=== PATIENT | female | born 1940 | race Caucasian/White ===

== ENCOUNTER 2017-11-14 10:04 | Day surgery (SDC) | payer MEDICARE, BC ==
[~2017-11-14 10:04] MED LIST: Bupivacaine 0.5% 50 ML MDV ONE; Lidocaine 1% with EPINEPHrine 1:100,000 50 ML MDV ONE
[2017-11-14] MEDS ORDERED: Dextrose 5%-Lactated Ringers 1,000 ML IV SCH (10:45)
[2017-11-14] MEDS ORDERED: Midazolam 1 MG/ML 2 ML SDV ONE (11:15)
[2017-11-14] MEDS ORDERED: Propofol 200 MG/20 ML SDV ONE (11:15)
[2017-11-14] MEDS ORDERED: fentaNYL 100 MCG/2 ML SDV ONE (11:15)
[2017-11-14] MEDS ORDERED: Lidocaine 1% with EPINEPHrine 1:100,000 50 ML MDV INJECT ONE (12:14)
[2017-11-14] MEDS ORDERED: Bupivacaine 0.5% 50 ML MDV INJECT ONE (12:14)
[2017-11-14] MEDS ORDERED: Acetaminophen/HYDROcodone 325-5 MG Tab PO PRN (13:06)
--- NOTE | 2017-11-14 18:02 | OR ---
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 PROCEDURE: Excision of 1.7 cm right axillary cystic mass and adjacent 1 cm lymph node. ANESTHESIA: IV anesthesia with monitored anesthesia care. INDICATIONS: This 77-year-old white female has a history about 2-1/2 years ago of a right simple mastectomy and sentinel node biopsy for ductal carcinoma in situ done in [place], [place]. She now notes a mass in her right axilla. Ultrasound shows it to be cystic, appears to be benign, she wants it removed. I counseled her for removal of this 1.7 cm cystic mass in the right axilla including risks and alternatives, and she gave her informed consent to proceed. Frozen section was performed. DESCRIPTION OF PROCEDURE: After adequate IV anesthesia was obtained, the patient's right chest, axilla, shoulder, and arm to the elbow were prepped and draped in the usual sterile fashion. Time-out was held. Lidocaine 1% with epinephrine in a 50:50 mix with 0.5% Marcaine was infiltrated about the right axilla. A transverse right axillary incision was made. This was carried deep sharply and bluntly to the mass. The mass was dissected free. It appeared to be scarred. It did not easily come out. It was sent to the Laboratory along with adjacent 1 cm mass, which was consistent with a lymph node. Frozen section showed the lymph node and cyst to be benign and inflamed. In the meantime, incision was irrigated with sterile water and suctioned dry. The deep tissues were closed with a running stitch of 3-0 Vicryl, 4-0 Vicryl using a subcuticular stitch was placed to approximate the skin. Steri- Strips and sterile dressing were applied. The patient tolerated the procedure well and was brought to the recovery room in good condition. Brayan Marroquin MD /[id number]
== END 2017-11-14 13:53 | disposition home or self-care (01) ==
LOC: JP.SDS 10:04
PROVIDERS: ATTEND Surgery
DX: L02.411 Cutaneous abscess of right axilla (principal); I10 Essential (primary) hypertension; K21.9 Gastro-esophageal reflux disease without esophagitis; F32.9 Major depressive disorder, single episode, unspecified; Z79.899 Other long term (current) drug therapy; Z85.3 Personal history of malignant neoplasm of breast
CPT/HCPCS: 88305; 88331; 88332; 88334; A9270-GY; J2250; J2704; J3010; J7042

== ENCOUNTER 2018-03-17 11:08 | Emergency (ER) | payer MEDICARE, BC ==
--- NOTE | 2018-03-17 12:05 | EDM.PDOC ---
ED HPI GENERAL MEDICAL PROBLEM - General Chief Complaint: General Stated Complaint: SWOLLEN LEFT HAND Time Seen by Provider: 03/17/18 11:50 Source of Information: Reports: Patient, RN History Limitations: Reports: No Limitations - History of Present Illness INITIAL COMMENTS - FREE TEXT/NARRATIVE: 77 yo female presents requesting her ring be cut off. Over the yrs the PIP jt on that finger has become arthritic and enlarged so that now she cannot get the ring off. Thinks the ring was made from a gold nugget. 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) (none) - Related Data Allergies Allergy/AdvReac Type Severity Reaction Status Date / Time adhesive tape Allergy Rash Verified 11/10/17 15:58 Home Meds: Home Meds Gabapentin [Neurontin] 600 mg PO QID 11/10/17 [History] Latanoprost 1 drop EYEBOTH BEDTIME 11/10/17 [History] Metoprolol Succinate [Toprol XL] 12.5 mg PO DAILY 11/10/17 [History] Sertraline [Zoloft] 100 mg PO DAILY 11/10/17 [History] Simvastatin [Zocor] 20 mg PO BEDTIME 11/10/17 [History] Timolol [Betimol] 1 drop EYEBOTH DAILY 11/10/17 [History] Zolpidem [Ambien] 5 mg PO BEDTIME PRN 11/10/17 [History] Past Medical History HEENT History: Reports: Impaired Vision Cardiovascular History: Reports: Hypertension Gastrointestinal History: Reports: Colon Polyp, Other (See Below) Other Gastrointestinal History: bowel surgery Genitourinary History: Reports: None [employer] 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 Neurological History: Reports: Headaches, Chronic Psychiatric History: Reports: Depression Oncologic (Cancer) History: Reports: Basal Cell Carcinoma, Breast - Infectious Disease History Infectious Disease History: Reports: Chicken Pox, Measles, Scarlet Fever - Past Surgical History Head Surgeries/Procedures: Reports: None HEENT Surgical History: Reports: None Cardiovascular Surgical History: Reports: None GI Surgical History: Reports: Appendectomy, Colonoscopy Female Surgical History: Reports: None, Breast Biopsy, Hysterectomy, Mastectomy Neurological Surgical History: Reports: None Oncologic Surgical History: Reports: Mastectomy Dermatological Surgical History: Reports: Skin Biopsy Social & Family History - Family History Family Medical History: Noncontributory - Tobacco Use Smoking Status *Q: Never Smoker Second Hand Smoke Exposure: No - Caffeine Use Caffeine Use: Reports: Coffee Other Caffeine Use: 1-2 cups a day - Recreational Drug Use Recreational Drug Use: No ED ROS GENERAL - Review of Systems Review Of Systems: See Below Constitutional: Reports: No Symptoms HEENT: Reports: No Symptoms Respiratory: Reports: No Symptoms Cardiovascular: Reports: No Symptoms Endocrine: Reports: No Symptoms GI/Abdominal: Reports: No Symptoms : Reports: No Symptoms Musculoskeletal: Reports: No Symptoms Skin: Reports: No Symptoms Neurological: Reports: No Symptoms Psychiatric: Reports: No Symptoms ED EXAM, GENERAL - Physical Exam Exam: See Below Exam Limited By: No Limitations General Appearance: Alert, WD/WN, No Apparent Distress Extremities: Other (Gold colored ring on her L ring finger. Unable to remove, but there is no swelling of the distal finger. ) Neurological: Alert, Oriented Psychiatric: Normal Affect, Normal Mood Course - Vital Signs Text/Narrative:: Ring cut and removed with ring cutter and pliers. Last Recorded V/S: Last Vital Signs Temp 35.6 C 03/17/18 11:40 Pulse 61 03/17/18 11:40 Resp 13 03/17/18 11:40 BP 121/61 03/17/18 11:40 Pulse Ox 96 03/17/18 11:40 Departure - Departure Time of Disposition: 12:19 Disposition: Home, Self-Care 01 Condition: Good Clinical Impression: Tight ring on finger - Discharge Information Referrals: Sherly Kiran PA [Primary Care Provider] - Forms: ED Department Discharge
== END 2018-03-17 12:22 | disposition home or self-care (01) ==
LOC: JP.ED 11:08
DX: S60.455A Superficial foreign body of left ring finger, initial encounter (principal); I10 Essential (primary) hypertension; Z91.09 Other allergy status, other than to drugs and biological substances; Z79.899 Other long term (current) drug therapy
CPT/HCPCS: 99283